=== PATIENT | male | born 1995 | race Caucasian/White ===

== ENCOUNTER 2017-05-24 18:10 | Emergency (ER) | payer OTHER ==
[2017-05-24 18:47] VITALS: BP 133/80
--- NOTE | 2017-05-24 20:04 | UC ---
Dedrick Beard Thomas, scribed for Tran Rose MD on 05/24/17 at 1941 . Ear Complaint HPI - HPI Summary HPI Summary: The pt is a 21 y/o M [place] [facility] ear pain s/p swimming and diving today at 13:30. He reports that he was diving off the "high board" and drove straight to the bottom of an 8 foot pool. The pain began suddenly when he was at the bottom of the pool in his left ear. He additionally c/o drainage to his left ear that has been constant since the pain began that has progressively worsened over time and is 6/10 [place] [facility] The pain is aggravated and alleviated by nothing. 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 Pt additionally c /o mild decreased hearing on the left side. He has never ruptured his eardrum previously. No complaints prior to dive. 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 PMHx: ear infections. PSHx: wisdom teeth removal. SHx: no smoking, occasional alcohol use. FHx: DM. 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 He has never been evaluated by an ENT physician before. Patients medication reviewed this visit. - History of Current Complaint Chief Complaint: UCEar Stated Complaint: EAR PAIN Time Seen by Provider: 05/24/17 19:21 Hx Obtained From: Patient Onset/Duration: Sudden Onset, Lasting Hours - today at 13:30, Still Present Pain Intensity: 6 Pain Scale Used: 0-10 Numeric Aggravating Factors: Nothing Alleviating Factors: Nothing Associated Signs/Symptoms: Positive: Discharge - constant since the pain began, Hearing Loss - to left ear Related History: Other (Noted In Comments) - He was swimming and dove 8 feet when the pain began. 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 - Allergies/Home Medications Allergies/Adverse Reactions: Allergies Allergy/AdvReac Type Severity Reaction Status Date / Time No Known Allergies Allergy Verified 05/24/17 18:47 PMH/Surg Hx/FS Hx/Imm Hx Previously Healthy: Yes - ear infections Cardiovascular History: Other Other Cardiovascular History: NEG: CHF - Surgical History Surgical History: Yes Surgery Procedure, Year, and Place: [place] teeth removal - Family History Known Family History: Positive: Diabetes Negative: Hypertension - Social History Occupation: Student Lives: Alone - college student - with friends Alcohol Use: Occasionally Smoking Status (MU): Never Smoked Tobacco Review of Systems Constitutional: Negative, Other - NEG: fever Skin: Negative Eyes: Negative ENT: Ear Ache - L-sided, s/p diving at 13:30, sudden onset, progressively worse , 6/[place] [facility] Other - POS: ear drainage since 13:30, decreased hearing on the left side Respiratory: Negative Cardiovascular: Negative Gastrointestinal: Negative Genitourinary: Negative Motor: Negative Neurovascular: Negative Musculoskeletal: Negative Neurological: Negative Psychological: Negative All Other Systems Reviewed And Are Negative: Yes Physical Exam Triage Information Reviewed: Yes Appearance: Well-Appearing, Pain Distress - mild discomfort Vital Signs: Initial Vital Signs Temp 97.8 F 05/24/17 18:43 Pulse 81 05/24/17 18:43 Resp 16 05/24/17 18:43 BP 133/80 05/24/17 18:43 Pulse Ox 100 05/24/17 18:43 Vital Signs Reviewed: Yes Eye Exam: Normal ENT: Positive: Hearing grossly normal, Pharynx normal, Pharyngeal erythema, Nasal congestion. Negative: TMs normal - left tm rupture - unable to visualize ossicles, pt with serosangesous drainage, pt with brownish creamy drainage in canal right TM wnl mmoist no exudate uvula midline Neck exam: Normal Neck: Positive: Supple, Nontender, No Lymphadenopathy Respiratory Exam: Normal Respiratory: Positive: Chest non-tender, Lungs clear, Normal breath sounds, No respiratory distress, No accessory muscle use Cardiovascular Exam: Normal Cardiovascular: Positive: RRR, No Murmur, Pulses Normal, Brisk Capillary Refill Abdominal Exam: Normal Abdomen Description: Positive: Nontender, No Organomegaly, Soft Bowel Sounds: Positive: Present Musculoskeletal Exam: Normal Musculoskeletal: Positive: Strength Intact Neurological Exam: Normal Neurological: Positive: Alert, Muscle Tone Normal Psychological Exam: Normal Psychological: Positive: Normal Response To Family Skin Exam: Normal Ear Complaint Course/Dx - Course Course Of Treatment: The patient presents [place] [facility] with left ear pain, drainage, and hearing loss that began suddenly when he was at the bottom of a pool today at 13:30. 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 I consulted with Dr. Moreno, ENT, who made recommendations regarding patient care. Will follow recommendations: oflaxacin 5drop BID. oral analgesia. fax to office. will see tomorrow. Pt given work note. pt comfortable and in agreement with plan - Differential Dx/Diagnosis Provider Diagnoses: ruptured TM - Physician Notifications Discussed Patient Care With: Isidro Moreno Time Discussed With Above Provider: 19:50 - ofloxacin 5drop BID, oral motrin/ apap, see tomorrow - will fax facesheet to office Instructed by Provider To: Other - We discussed patient care and he made recommendations. Discharge - Discharge Plan Condition: Stable Disposition: HOME Prescriptions: Ofloxacin (Otic) [Floxin Otic] 0.3 % OTIC BID #1 mert Patient Education Materials: Ruptured Eardrum (ED) Forms: *Physical Education Release, *School Release Referrals: Isidro Moreno MD [Medical Doctor] - Additional Instructions: - Contact Dr Moreno, ENT surgeon, office first thing tomorrow morning - he is expecting you - you will get an appointment to be seen - okay to alternate ibuprofen (Motrin, advil) and tylenol every 3 hours for pain - Okay to gently place a cotton ball just inside your ear to help with drainage - avoid getting water in your ear Contact the ENT Office or return to the emergency department with questions or concerns The documentation as recorded by the Dedrick jean Thomas accurately reflects the service I personally performed and the decisions made by me, Tran Rose MD.
[2017-05-24] MEDS: Acetaminophen ADULT LIQ* 650 MG/20.3 ML UDC PO ONE ×2 (20:19→20:24)
== END 2017-05-24 20:18 | disposition home or self-care (01) ==
LOC: UCEAST 18:10
DX: H72.92 Unspecified perforation of tympanic membrane, left ear (principal)
CPT/HCPCS: 99202; A9270-GY; G0463

== ENCOUNTER 2019-09-15 11:46 | Emergency (ER) | payer OTHER ==
[2019-09-15 12:22] VITALS: BP 107/58
--- NOTE | 2019-09-15 12:41 | UC ---
Ear Complaint HPI - HPI Summary HPI Summary: left ear pain began yesterday--no fever, sore throat, nasal drainage or fever - History of Current Complaint Chief Complaint: UCEar Stated Complaint: EAR ACHE Time Seen by Provider: 09/15/19 12:34 Hx Obtained From: Patient Onset/Duration: Sudden Onset, Lasting Days - 1, Still Present Pain Intensity: 1 Pain Scale Used: 0-10 Numeric Aggravating Factors: Nothing Alleviating Factors: OTC Meds - tylenol - Allergies/Home Medications Allergies/Adverse Reactions: Allergies Allergy/AdvReac Type Severity Reaction Status Date / Time No Known Allergies Allergy Verified 09/15/19 12:22 Home Medications: Home Medications Acetaminophen 325 mg PO Q4HR 09/15/19 [History Confirmed 09/15/19] PMH/Surg Hx/FS Hx/Imm Hx Previously Healthy: Yes - Surgical History Surgical History: Yes Surgery Procedure, Year, and Place: [place] teeth removal - Family History Known Family History: Positive: Diabetes Negative: Hypertension - Social History Occupation: Student Lives: With Family Alcohol Use: Occasionally Substance Use Type: None Smoking Status (MU): Never Smoked Tobacco Review of Systems All Other Systems Reviewed And Are Negative: Yes Constitutional: Positive: Negative Skin: Positive: Negative Eyes: Positive: Negative ENT: Positive: Ear Ache - left Respiratory: Positive: Negative Cardiovascular: Positive: Negative Gastrointestinal: Positive: Negative Genitourinary: Positive: Negative Motor: Positive: Negative Musculoskeletal: Positive: Negative Neurological: Positive: Negative Psychological: Positive: Negative Is Patient Immunocompromised?: No Physical Exam Triage Information Reviewed: Yes Appearance: Well-Appearing, No Pain Distress, Well-Nourished Vital Signs: Initial Vital Signs Temp 98.4 F 09/15/19 12:18 Pulse 73 09/15/19 12:18 Resp 16 09/15/19 12:18 BP 107/58 09/15/19 12:18 Pulse Ox 99 09/15/19 12:18 Vital Signs Reviewed: Yes Eye Exam: Normal Eyes: Positive: Conjunctiva Clear ENT Exam: Normal ENT: Positive: Normal ENT inspection, Hearing grossly normal, Pharynx normal, TMs normal, Uvula midline, Other - left canal weeping red and swollen. Negative : Nasal congestion, TM red, Trismus, Muffled voice, Hoarse voice, Sinus tenderness Dental Exam: Normal Neck exam: Normal Neck: Positive: Supple, Nontender, No Lymphadenopathy Respiratory Exam: Normal Respiratory: Positive: Chest non-tender, No respiratory distress, No accessory muscle use Cardiovascular Exam: Normal Cardiovascular: Positive: RRR, Pulses Normal, Brisk Capillary Refill Musculoskeletal Exam: Normal Musculoskeletal: Positive: Strength Intact, ROM Intact Neurological Exam: Normal Neurological: Positive: Alert, Muscle Tone Normal Psychological Exam: Normal Skin Exam: Normal Ear Complaint Course/Dx - Course Course Of Treatment: keep ear dry, ciprodex, Tylenol/ibuprofen for pain follow with primary care if needed - Differential Dx/Diagnosis Provider Diagnosis: Otitis externa, left Discharge ED - Sign-Out/Discharge Documenting (check all that apply): Patient Departure All imaging exams completed and their final reports reviewed: No Studies - Discharge Plan Condition: Stable Disposition: HOME Prescriptions: Ciproflox/Dexameth OTIC.SUSP* [Ciprodex OTIC.SUSP*] 1 drop .SEE ORDER BID 7 Days #1 btl Patient Education Materials: Otitis Externa (ED), How to Use Ear Drops (ED) Referrals: No Primary Care Phys,NOPCP [Primary Care Provider] - Additional Instructions: Follow with your [facility], primary care provider or return as needed - Billing Disposition and Condition Condition: STABLE Disposition: Home
== END 2019-09-15 12:49 | disposition home or self-care (01) ==
LOC: UCEAST 11:46
DX: H60.92 Unspecified otitis externa, left ear (principal)
CPT/HCPCS: 99212; G0463